=== PATIENT | female | born 1990 | race Caucasian/White ===

== ENCOUNTER 2024-08-12 19:24 | Observation (INO) | payer MEDICAID, SELFPAY ==
[2024-08-12] VITALS (49 sets, daily range): BP systolic 131–178; BP diastolic 60–88; PULSE 81–105; RESP 18–99; TEMP 36.8–36.9; O2SAT 88–100; BMI 37.0
--- NOTE | 2024-08-12 21:14 | XR_ITS ---
Examination: Transvaginal ultrasound of the pelvis, limited Technique: Transvaginal sonographic images pelvis performed using shafer scale imaging Exam date and time: August 12, 2024 0940 hours INDICATIONS: Pelvic cramping beginning 2 days ago, labor evaluation FINDINGS: Cervix 3.1 cm closed IMPRESSION: Cervix 3.1 cm closed.
--- NOTE | 2024-08-12 21:15 | XR_ITS ---
Examination: Complete OB ultrasound greater than 14 weeks Date and time of exam: August 12, 2024 at 2144 hours INDICATION: Pelvic cramping beginning 2 days ago Findings: Viable intrauterine single fetus with single amniotic sac presentation transverse head maternal left Cardiac motion 147 BPM Placenta anterior 1.7 cm from the cervix grade 2, the technologist describes an abruption 5.7 x 5.6 cm versus placental hematoma Umbilical cord insertion seen Amniotic fluid index 11.0 cm spine posterior Cervix 3.2 cm Ovaries obscured by bowel gas Composite estimated gestational age based on BPD, head circumference, abdominal circumference, femur length is 19 weeks 4 days Estimated weight 286 g. Survey of intracranial anatomy, spinal anatomy, abdominal anatomy, four-chamber heart performed with no abnormalities identified. Impression: Viable intrauterine gestation in transverse presentation Technologist describes an abruption versus placental hematoma on these images Please repeat this pelvic sonogram short-term
[2024-08-12 21:52] LABS: Collection Type, Urine Clean Catch; RBC,Urine 0 /hpf (0-3)
[2024-08-12 21:53] LABS: Basophils % (Auto) 0 % (0-2.5); Eosinophils # (Auto) 0.2 Thou/mm3 (0.0-0.5); Eosinophils % (Auto) 2 % (0-10); Hematocrit 36.3 % (36.0-46.0); Hemoglobin 12.5 g/dL (12.0-16.0); Immature Granulocytes % (Auto) 1 % (0-0); Immature Granulocytes Auto 0.05 Thou/mm3 (0.00-0.00); Lymphocytes # (Auto) 2.3 Thou/mm3 (1.0-4.8); Lymphocytes % (Auto) 24 % (10-50); Mean Corpuscular HGB Conc 34.4 g/dl (31.0-37.0); Mean Corpuscular Volume 87 fL (80-100); Monocytes # (Auto) 0.7 Thou/mm3 (0.0-0.8); Monocytes % (Auto) 7 % (0-12); Neutrophils # (Auto) 6.4 Thou/mm3 (1.8-7.7); Neutrophils % (Auto) 66 % (37-80); Nucleated Red Blood Cell % 0 /100 WBC (0); Platelet Count 255 Thou/mm3 (140-440); RDW Standard Deviation 43.8 fL (36.4-46.3); Red Blood Count 4.17 Miln/mm3 (4.00-5.20); White Blood Count 9.6 Thou/mm3 (3.6-11.0)
[2024-08-12 22:08] LABS: Fibrinogen 439 mg/dL (175-375); Partial Thromboplastin Time 29.3 Seconds (22.0-36.0); Prothrombin Time 11.4 Seconds (9.0-12.2)
[2024-08-12 22:13] LABS: Creatinine,Random Urine 133 mg/dL (30-125); Protein Total, Random Urine 24 mg/dL (1-14)
[2024-08-12 22:17] LABS: Bacteria,Urine Rare; Bilirubin,Urine Negative (Negative); Blood,Urine Negative (Negative); Clarity,Urine Turbid (Clear/Hazy); Color,Urine Yellow (Lt Yel-Yel); Glucose, Urine Negative (Negative); Hyaline Casts,Urine < 1 /hpf (0-1); Ketones,Urine Negative (Negative); Leukocyte Esterase,Urine Positive (Negative); Nitrite,Urine Positive (Negative); Protein,Urine Trace (Neg - Trace); Specific Gravity,Urine 1.026 (1.001-1.035); Squamous Epithelial Cell,Urine 7 /hpf (0-5); Urobilinogen,Urine Negative mg/dL (0.0-1.0); WBC,Urine 85 /hpf (0-5)
[2024-08-12 22:51] LABS: Alanine Aminotransferase 18 U/L (10-49); Albumin, Serum 3.7 gm/dL (3.5-5.0); Albumin/Globulin Ratio 1.5 (1.2-2.2); Alkaline Phosphatase 91 U/L (46-116); Anion Gap 7 (7-16); Aspartate Amino Transferase 15 U/L (0-34); BUN/Creatinine Ratio 13 Ratio (12-20); Bilirubin,Total 0.3 mg/dL (0.3-1.2); Blood Urea Nitrogen 8 mg/dL (9-23); Calcium 9.3 mg/dL (8.3-10.6); Calcium (Corrected) 9.5 mg/dL (8.5-10.1); Carbon Dioxide 26.5 mMol/L (20.0-31.0); Chloride 108 mMol/L (98-107); Creatinine (Component) 0.6 mg/dL (0.6-1.3); Estimated Creatinine Clearance 163.6 mL/min (>60); Globulin 2.4 gm/dL (2.3-3.5); Glucose 93 mg/dL (74-106); Osmolality,Calculated 279 (275-295); Potassium 3.7 mMol/L (3.4-5.1); Sodium 141 mMol/L (136-145); Total Protein 6.1 gm/dL (5.7-8.2); eGFR > 60 See Note
--- NOTE | 2024-08-12 23:12 | PD.LDPN ---
Documentation for date of: 08/12/24 OB Labor Progress Note Pelvic Exam Amniotic membrane status: Intact Contractions Monitor mode: External Contraction frequency: NONE Assessment and Plan Comments: Patient is a 34yo P3 (2 prior , 1 c/s for abruption) at approx 21wk presenting for RLQ discomfort/cramping. No leakage or bleeding. Sees an OBGYN in a neighboring town. Has a PN appt on Thursday scheduled. BP's initially elevated but then normal over time. Afebrile. Doptones + Urinalysis positive for UTI (+nitrites, LE, WBCs). CBC shows normal WBC and Hgb, PIH labs are normal (serum creatinine, LFTs, urine p:c) Ultrasound shows cervical length >3cm. There is incidental finding of a 5cm placental hematoma vs abruption and low lying placenta 1.7cm from os. Patient to be discharged home with macrobid 100mg PO BID x7 days to treat UTI (1st dose in triage since pharmacy doesn't open until am) Provided with copy of ultrasound report to show her OBGYN so that plan can be made to monitor placental findings going forward. She is pre-viable currently, so nothing to do presently other than monitor with her OBGYN. No heavy lifting or vigorous exercise for now as well as pelvic rest. Safe for discharge home at this time. Anna Jackson MD
[2024-08-12 23:19] LABS: LDH (Lactate Dehydrogenase) 143 U/L (120-246); Uric Acid 4.1 mg/dL (3.1-7.8)
[2024-08-12] MEDS: NITROFURANTOIN MACRO 100 MG CAPSULE PO (23:33)
== END 2024-08-12 23:40 | disposition home or self-care (01) ==
PROVIDERS: Admitting Provider Obstetrics & Gynecology; Visit Provider Obstetrics & Gynecology
DX: O23.42 Unspecified infection of urinary tract in pregnancy, second trimester (principal); N39.0 Urinary tract infection, site not specified; O32.2XX0 Maternal care for transverse and oblique lie, not applicable or unspecified; Z3A.21 21 weeks gestation of pregnancy
CPT/HCPCS: 36415; 59025; 59899; 76805; 76830; 80053; 81001; 82570; 83615; 84156; 84550; 85025; 85384; 85610; 85730; A9270

== ENCOUNTER 2024-08-14 10:04 | Observation (INO) | payer MEDICAID, SELFPAY ==
[2024-08-14] VITALS (46 sets, daily range): BP systolic 104–139; BP diastolic 68–79; PULSE 81–100; RESP 18–98; TEMP 36.9; O2SAT 95–100; BMI 36.5
--- NOTE | 2024-08-14 10:19 | XR_ITS ---
Examination: Complete OB ultrasound greater than 14 weeks Date and time of exam: August 14, 2024 1056 hrs. Indications: Pelvic cramping beginning 4 days ago, repeat sonogram, placental hematoma versus abruption on examination August 12, 2024 Findings: Viable intrauterine single fetus with single amniotic sac presentation breech Cardiac motion 158 BPM Placenta maternal right grade 1 Umbilical cord insertion seen Amniotic fluid index 12.8 cm spine posterior Cervix 4.6 cm Right ovary 1.9 x 2.0 cm arterial flow Left ovary 2.4 x 2.0 cm arterial flow. Composite estimated gestational age based on BPD, head circumference, abdominal circumference, femur length is 20 weeks 2 days Estimated weight 352.5 g. Survey of intracranial anatomy, spinal anatomy, abdominal anatomy, four-chamber heart performed with no abnormalities identified. Impression: Viable intrauterine gestation breech presentation Placenta maternal right grade 1 no abruption or hematoma.
--- NOTE | 2024-08-14 10:20 | XR_ITS ---
Examination: OB Transvaginal ultrasound of the pelvis, Limited Technique: Transvaginal sonographic images pelvis performed using shafer scale imaging Exam date and time: August 14, 2024 1115 hrs. Indications: Pelvic cramping beginning 4 days ago Findings: Cervix 4.2 cm closed Impression: Cervix 4.2 cm closed
== END 2024-08-14 13:45 | disposition home or self-care (01) ==
PROVIDERS: Admitting Provider Obstetrics & Gynecology; Visit Provider Obstetrics & Gynecology
DX: O26.892 Other specified pregnancy related conditions, second trimester (principal); R25.2 Cramp and spasm; O32.1XX0 Maternal care for breech presentation, not applicable or unspecified; Z3A.21 21 weeks gestation of pregnancy
CPT/HCPCS: 59025; 59899; 76805; 76817

== ENCOUNTER 2024-08-15 03:38 | Observation (INO) | payer MEDICAID, SELFPAY ==
[2024-08-15] VITALS (9 sets, daily range): BP systolic 128–152; BP diastolic 64–91; PULSE 87–98; RESP 17–96; TEMP 36.2; O2SAT 94–98; BMI 36.6
== END 2024-08-15 04:33 | disposition home or self-care (01) ==
PROVIDERS: Admitting Provider Obstetrics & Gynecology; Visit Provider Obstetrics & Gynecology
DX: O46.92 Antepartum hemorrhage, unspecified, second trimester (principal); Z3A.21 21 weeks gestation of pregnancy
CPT/HCPCS: 59899